=== PATIENT | male | born 1975 | race American Indian/Alaskan Native ===

== ENCOUNTER 2019-08-14 03:11 | Emergency (ER) | payer SELFPAY ==
[2019-08-14 06:41] LABS: Bacteria,Urine 1+ /HPF (Negative); Bilirubin,Urine NEG (Negative); Blood,Urine SM (Negative); Color,Urine Yellow (Yellow); Mucus,Urine FEW /HPF; Protein,Urine <15 mg/dL mg/dL (Negative); Urobilinogen,Urine < 2.0 mg/dL (<2.0)
[2019-08-14 06:48] LABS: WBC,Urine > 182.0 /HPF (0.0-6.0)
--- NOTE | 2019-08-14 09:25 | Emergency Department Report ---
ED Male HPI - General Chief complaint: Urogenital-Male Stated complaint: POSS UTI Time Seen by Provider: 08/14/19 09:01 Source: patient Mode of arrival: Ambulatory Limitations: No Limitations - History of Present Illness MD Complaint: penile discharge, dysuria -: Gradual, days(s) (4) Location: penis Radiation: none Severity: mild, moderate Quality: burning Consistency: constant Worsens with: urination discharge, dysuria. denies: swelling, urinary retention, blood in urine, nausea/vomiting, incontinence - Related Data Previous Rx's Medication Instructions Recorded Last Taken Type Azithromycin [Zithromax TAB] 1,000 mg PO ONCE #2 tablet 08/14/19 Unknown Rx Cefixime [Suprax] 400 mg PO ONCE #1 capsule 08/14/19 Unknown Rx Ondansetron [Zofran ODT TAB] 8 mg PO Q12HR #14 tab.rapdis 08/14/19 Unknown Rx metroNIDAZOLE [Flagyl] 2,000 mg PO ONCE #4 tablet 08/14/19 Unknown Rx Allergies Allergy/AdvReac Type Severity Reaction Status Date / Time No Known Allergies Allergy Unverified 08/14/19 03:40 ED Review of Systems ROS: Stated complaint: POSS UTI Other details as noted in HPI Comment: All other systems reviewed and negative ED Past Medical Hx - Past Medical History Previous Medical History?: Yes Hx Seizures: Yes Hx HIV: Yes - Surgical History Past Surgical History?: No - Social History Smoking Status: Current Every Day Smoker Substance Use Type: Marijuana - Medications Home Medications: Home Medications Medication Instructions Recorded Confirmed Last Taken Type Azithromycin [Zithromax TAB] 1,000 mg PO ONCE #2 tablet 08/14/19 Unknown Rx Cefixime [Suprax] 400 mg PO ONCE #1 capsule 08/14/19 Unknown Rx Ondansetron [Zofran ODT TAB] 8 mg PO Q12HR #14 tab.rapdis 08/14/19 Unknown Rx metroNIDAZOLE [Flagyl] 2,000 mg PO ONCE #4 tablet 08/14/19 Unknown Rx ED Physical Exam - General Limitations: No Limitations General appearance: alert, in no apparent distress - Head Head exam: Present: atraumatic, normocephalic - Eye Eye exam: Present: normal appearance - ENT ENT exam: Present: mucous membranes moist - Neck Neck exam: Present: normal inspection - Respiratory Respiratory exam: Present: normal lung sounds bilaterally. Absent: respiratory distress - Cardiovascular Cardiovascular Exam: Present: regular rate, normal rhythm. Absent: systolic murmur, diastolic murmur, rubs, gallop - GI/Abdominal GI/Abdominal exam: Present: soft, tenderness, normal bowel sounds. Absent: hyperactive bowel sounds, hypoactive bowel sounds, organomegaly - Rectal Rectal exam: Present: deferred - Extremities Exam Extremities exam: Present: normal inspection - Back Exam Back exam: Present: normal inspection. Absent: CVA tenderness (R), CVA tenderness (L) - Neurological Exam Neurological exam: Present: alert, oriented X3, CN II-XII intact - Psychiatric Psychiatric exam: Present: normal affect, normal mood - Skin Skin exam: Present: warm, dry, intact, normal color. Absent: rash ED Course Vital Signs 08/14/19 03:27 Temperature 97.7 F Pulse Rate 91 H Respiratory 18 Rate Blood Pressure 139/94 O2 Sat by Pulse 96 Oximetry Critical care attestation.: If time is entered above; I have spent that time in minutes in the direct care of this critically ill patient, excluding procedure time. ED Disposition Clinical Impression: Dysuria Disposition: DC-01 TO HOME OR SELFCARE Is pt being admited?: No Does the pt Need Aspirin: No Condition: Stable Instructions: Dysuria (ED) Prescriptions: metroNIDAZOLE [Flagyl] 2,000 mg PO ONCE #4 tablet Cefixime [Suprax] 400 mg PO ONCE #1 capsule Azithromycin [Zithromax TAB] 1,000 mg PO ONCE #2 tablet Ondansetron [Zofran ODT TAB] 8 mg PO Q12HR #14 tab.rapdis Referrals: IRAIS MG MD [Primary Care Provider] - 3-5 Days
[2019-08-14 09:52] VITALS: BP 140/96
== END 2019-08-14 09:45 | disposition home or self-care (01) ==
LOC: ED 03:11
DX: R30.0 Dysuria (principal); F17.200 Nicotine dependence, unspecified, uncomplicated; F12.10 Cannabis abuse, uncomplicated; Z21 Asymptomatic human immunodeficiency virus [HIV] infection status; Z79.899 Other long term (current) drug therapy
CPT/HCPCS: 81001; 99283